=== PATIENT | male | born 1975 | race Caucasian/White ===

== ENCOUNTER 2019-06-28 09:16 | Emergency (ER) | payer OTHER ==
[~2019-06-28] VITALS: Ht 177.8 cm; Wt 66.2 kg
[2019-06-28] MEDS ORDERED: ASPIR 8181 M1 PO (09:34)
[2019-06-28] MEDS ORDERED: FLOMAX0.4 MG PO (09:34)
[2019-06-28 09:59] LABS: URINE BILIRUBIN NEGATIVE (Negative); URINE BLOOD NEGATIVE (Negative); URINE CLARITY CLEAR; URINE COLOR YELLOW; URINE GLUCOSE-RANDOM NEGATIVE (Negative); URINE KETONES NEGATIVE (Negative); URINE LEUKOCYTES NEGATIVE (Negative); URINE NITRITE NEGATIVE (Negative); URINE PROTEIN NEGATIVE (Negative); URINE SPECIFIC GRAVITY <= 1.005 (1.005-1.030); URINE UROBILINOGEN 0.2 E.U./dl (0.2-1.0)
[2019-06-28 11:09] LABS: HEMATOCRIT 42.2 % (42.0-52.0); HEMOGLOBIN 13.9 gm/dL (14.0-18.0); MCH 27.6 pg (26.0-34.0); MCV 83.7 fL (80.0-100.0); MPV 7.6 fl. (7.2-11.1); NUCLEATED RBCS 0 /100WBC; PLATELET COUNT* 270 thou/uL (150-400); RBC 5.03 mil/uL (4.50-6.00); WBC 11.4 thou/uL (4.0-11.0)
[2019-06-28 11:27] LABS: CALCIUM 9.4 mg/dL (8.5-10.1); CREATININE 1.3 mg/dL (0.6-1.3); POTASSIUM 4.1 mmol/L (3.5-5.1)
[2019-06-28 11:31] LABS: ALBUMIN 3.4 g/dL (3.4-5.0); TOTAL BILIRUBIN 0.7 mg/dL (<0.1-1.0); TOTAL PROTEIN 7.2 g/dL (6.4-8.2)
[2019-06-28 11:34] LABS: ABSOLUTE LYMPHOCYTES 0.3 thou/uL (0.8-5.3); ABSOLUTE MONOCYTES 0.7 thou/uL (0.0-1.2); ABSOLUTE NEUTROPHILS 10.4 thou/uL (1.6-8.1); ANISOCYTOSIS 1+; PLATELET ESTIMATE ADEQUATE; POIKILOCYTOSIS 1+
[2019-06-28] MEDS ORDERED: ZOFRAN ODT4 MG PO (12:45)
[2019-06-28] MEDS ORDERED: CIPROFLOXACIN500 M1 PO (12:45)
[2019-06-28] MEDS ORDERED: FLAGYL500 M1 PO (12:45)
[2019-06-28] MEDS ORDERED: HYDROCODON-ACE1 EAC7 PO (12:45)
[2019-06-28 14:31] VITALS: BP 117/73
== END 2019-06-28 14:32 | disposition home or self-care (01) ==
LOC: M.ERS 09:16
PROVIDERS: Personal Emergency Response Attendant
DX: K57.32 Diverticulitis of large intestine without perforation or abscess without bleeding (principal); N40.0 Benign prostatic hyperplasia without lower urinary tract symptoms

== ENCOUNTER 2020-11-24 15:13 | Emergency (ER) | payer OTHER ==
[~2020-11-24] VITALS: Ht 175.3 cm; Wt 68.0 kg
[~2020-11-24 15:13] MED LIST: ASPIR 8181 M1 PO; CIPROFLOXACIN500 M1 PO; FLAGYL500 M1 PO; FLOMAX0.4 MG PO; HYDROCODON-ACE1 EAC7 PO; ZOFRAN ODT4 MG PO
[2020-11-24 15:40] LABS: ABSOLUTE EOSINOPHILS 0.1 thou/uL (0.0-0.7); ABSOLUTE LYMPHOCYTES 1.1 thou/uL (0.8-5.3); ABSOLUTE MONOCYTES 0.4 thou/uL (0.0-1.2); ABSOLUTE NEUTROPHILS 4.5 thou/uL (1.6-8.1); BASOPHILS 0.8 %; HEMOGLOBIN 12.6 gm/dL (14.0-18.0); MCH 23.2 pg (26.0-34.0); MCHC 31.6 g/dL (28.0-37.0); MCV 73.5 fL (80.0-100.0); MONOCYTES 5.9 %; NUCLEATED RBCS 0 /100WBC; PLATELET COUNT* 315 thou/uL (150-400); POLYS 74.3 %; RBC 5.44 mil/uL (4.50-6.00); RDW-CV 15.7 % (10.5-14.5); WBC 6.1 thou/uL (4.0-11.0)
[2020-11-24 15:47] LABS: CALCIUM 8.9 mg/dL (8.5-10.1); CREATININE 1.6 mg/dL (0.6-1.3); POTASSIUM 3.8 mmol/L (3.5-5.1)
[2020-11-24 16:00] LABS: ALBUMIN 3.7 g/dL (3.4-5.0); MAGNESIUM 2.1 mg/dL (1.8-2.4); TOTAL BILIRUBIN 0.4 mg/dL (<0.1-1.0); TOTAL PROTEIN 7.1 g/dL (6.4-8.2)
[2020-11-24 16:46] VITALS: BP 123/65
--- NOTE | 2020-11-25 12:19 | EKG ---
[place] [address] ELECTROCARDIOGRAM REPORT Name: DEANN MCKNIGHT Room: [facility]#: [id number] Admission: 11/24/20 Attend Phys: Discharge: 11/24/20 Date of : 73 Date of Service: 11/24/20 1525 Report #: [id number] THIS REPORT FOR: //name// [facility] ED Test Date: 2020-11-24 Test Time: 15:25:04 Pat Name: DEANN MCKNIGHT Department: Room: Gender: [employer]: [facility] : 1975 Requested By: Russell Carlton Order Number: [id number] MD: Daryl Regalado Measurements Intervals [place] Rate: 95 P: 17 [place]: 100 QRS: 38 QRSD: 89 T: 30 QT: 320 QTc: 403 Interpretive Statements Sinus rhythm Short [place] interval Consider left ventricular hypertrophy ST elev, probable normal early repol pattern No previous ECG available for comparison Electronically Signed On 11-25-2020 12:19:48 CDT by Daryl Regalado [email or web address] <ELECTRONICALLY SIGNED> By: Daryl Regalado MD, [facility] 11/25/20 1219 1525 1525 Daryl Regalado MD, [facility] /EPI
== END 2020-11-24 16:47 | disposition home or self-care (01) ==
LOC: M.ERS 15:13
PROVIDERS: Emergency Medicine Emergency Medical Services
DX: R00.2 Palpitations (principal); D45 Polycythemia vera; Z79.899 Other long term (current) drug therapy